=== PATIENT | female | born 1950 | race Caucasian/White ===

== ENCOUNTER 2024-12-29 23:31 | Emergency (ER) | payer OTHER, SELFPAY ==
[2024-12-29 23:33] VITALS: BMI 31.1
--- NOTE | 2024-12-29 23:50 | ED.GENMED ---
History of Present Illness
General
Chief Complaint: Fall
Source: patient and ambulance crew
Exam Limitations: none
Time Seen by Provider: 12/29/24 23:37
Nursing documentation reviewed up to this point in time: agreed with
History of Present Illness
History of Present Illness:
This is a 74-year-old woman history of hypothyroidism, pwu-neyxrqe-awklvgrli diabetes, hyperlipidemia, depression, mild cognitive impairment, insomnia, remote history of renal cell carcinoma status post nephrectomy and history of ambulatory
dysfunction uses a walker to ambulate. She resides in an assisted living apartment, recently relocating from an assisted living facility in [place] to assisted living facility locally 2 weeks ago.
This evening while ambulating with her walker she lost her balance and fell onto her back. She denies head injury, denies loss of consciousness, pressed her medical alert immediately. Staff summoned 911.
When asked if she had difficulty getting up patient states 'they would not let me get up'
She has full recollection of events, denies striking her head, denies head injury, denies neck pain but she does note some back pain, left knee pain and tingling of her left foot. She takes no anticoagulants other than low-dose aspirin.
Past History
Past History
ED Past Medical History: Cancer (Renal cell carcinoma status post nephrectomy), GERD, HTN, NIDDM, Hypothyroidism, Psychiatric (Anxiety/depression/mild cognitive impairment/insomnia) and Other (Overactive bladder, irritable bowel syndrome)
ED Past Surgical History: Urological (Nephrectomy for renal cell carcinoma)
Social History
Tobacco: Non-smoker
Alcohol: None
Living: assisted living
Employment: Retired
Family History
Family History: Other (Noncontributory)
Phy Exam
Physical Exam
Physical Exam:
TRAUMA EXAM:
VITAL SIGNS: Vital signs reviewed, cooperative
DISTRESS: No active disease
EYES: Pupils reactive, no orbital trauma
NOSE: No deformity or epistaxis
FACE AND SCALP: No scalp or facial trauma, external canals no blood
NECK: Cervical collar removed by myself. There is no midline bony tenderness, neck is supple. Full cervical range of motion without difficulty nor pain.
BACK: Mild midline tenderness at mid to lower thoracic spine, no contusions nor abrasions, no palpable step-off deformity. Pelvis stable to compression but mild bilateral pelvic pain with pelvic rock.
RESPIRATORY: No distress, breath sounds normal, no tender chest wall
CARDIAC: No murmur, pulses equal and strong
ABDOMEN: Soft nontender bowel sounds normal
SKIN: Skin intact no bleeding, color normal
EXTREMITIES: Mild to moderate tenderness left anteromedial distal knee with very minimal local soft tissue swelling and perhaps a hint of early ecchymosis. There is mild to moderate left knee pain with flexion/extension without crepitus, negative
drawer. There is no tenderness about the hips and full bilateral hip range of motion without difficulty nor pain. No tenderness to the ankles nor feet. No tenderness to the upper extremities. Peripheral pulses are full and equal. There is no
clubbing or cyanosis nor edema.
NEUROLOGICAL: Alert, oriented, no motor deficits. Motor strength is 5/5 bilaterally. Gross sensation is intact bilaterally.
PSYCH: Mood affect normal
Course
Orders/Labs/Results
Orders:
Orders
12/30/24 00:00
Knee, Left 4 or More Views [CR Knee - Left 4 Or More View*] Urgent
Comment:
Reason For Exam: fall, L anterior/distal knee pain
Lumbar Spine Complete, 4 View [CR Lumbar Spine Comp Min 4 Vw*] Urgent
Comment:
Reason For Exam: mechanical fall, mid back pain
Pelvis, Complete 3 Views CR [CR Pelvis Comp Min 3 Views] Urgent
Comment:
Reason For Exam: mechanical fall, b/l bony pelvic pain
Thoracic Spine 3 Views CR [CR Thoracic Spine 3 Views] Urgent
Comment:
Reason For Exam: mechanical fall, mid back pain
12/30/24 01:38
Acetaminophen [Tylenol] 1,000 mg PO NOW STA
12/30/24 02:13
Ambulate Patient-Treatment ONCE
12/30/24 02:36
Acetaminophen [Tylenol] 500 mg .ROUTE .STK-MED ONE
Vital Signs
Initial and Last Documented VS:
Initial Vital Signs
Pulse Ox
98
12/29/24 23:35
Last Documented Vital Signs
Temp Pulse Resp BP Pulse Ox
97.5 F 82 18 139/71 93
12/30/24 00:00 12/30/24 03:54 12/30/24 03:54 12/30/24 02:00 12/30/24 02:15
MDM/Problems Addressed
Differential Diagnosis Includes:
Patient suffered mechanical fall at assisted living facility. Has full recollection of events. She remains awake and alert, oriented x 3, consistent with retelling/recall of recent events.
Denies head injury, takes no anticoagulants save for low-dose aspirin. At this point no indication for CT of the head.
She is noted to be tender mid to lower thoracic spine, concern for potential compression fracture thus will check x-ray thoracic as well as lumbar spine.
Exam is also notable for moderate left knee pain and subjective paresthesia of left foot however no focal neuro deficits. Concern for left tibial plateau fracture/knee contusion.
Complains of paresthesia of left foot however no appreciable sensory deficit nor weakness on exam. Concern for peripheral neuropathy versus more central/cord/nerve root compression.
Chronic conditions affecting care: DM, Psychiatric illness, Kidney disease (Renal cell carcinoma status post nephrectomy) and Other (Ambulatory dysfunction requiring walker)
*Radiology
Radiology exam reviewed: all reviewed NAD by ED Provider (X-ray showed moderate DJD of thoracic and lumbar spine but no evidence of fracture. Pelvis x-ray is unremarkable as is left knee.)
*Pulse Oximetry
Patient hypoxic: no
*Critical Care Note
Total Time (30-74mins, 75-104mins- exclusive of procedures): Not Applicable
Update Note
Update Note:
03:30
X-rays are unremarkable. No evidence of fracture.
Patient has been medicated for pain with Tylenol and has successfully ambulated with walker. Steady gait.
Denies pain.
Will discharge back to assisted living facility.
ED Attending Note
-
Portions of this chart may have been created with voice recognition software.� Occasional wrong word or��sound alike� substitutions may have occurred due to the inherent limitations of voice recognition software.
Discharge Plan
Departure
Patient Disposition: Assisted Living
Date of Disposition: 12/30/24
Time of Disposition: 03:30
Discharge Problem:
fall at assisted living facility, Contusion of knee, left, Low back pain
Instructions: Contusion (DC), Preventing falls in adults
Interventions
Interventions:
*Risk Screen - Suicide Last Done: 12/29/24 23:53
*General Assessment Last Done: 12/29/24 23:53
*Neglect/Abuse Screening Last Done: 12/29/24 23:53
*ED- Fall Risk Assessment Last Done: 12/29/24 23:53
*ED COVID-19 Vaccine History Last Done: 12/29/24 23:53
*Nursing Disposition Last Done: 12/30/24 03:54
ED-Musculoskeletal Assessment Last Done: 12/30/24 00:08
ED- Neurological Assessment Last Done: 12/30/24 00:08
ED-Skin Assessment Last Done: 12/30/24 00:08
Discharge Date and Time
Discharge Date/Time: 12/30/24 03:55
Print Language: LATVIAN
[2024-12-30] VITALS: BP 145/69
[2024-12-30 01:11] VITALS: BP 144/73
[2024-12-30 02:00] VITALS: BP 139/71
[2024-12-30] MEDS: TYLENOL 1000 MG PO (02:36)
== END 2024-12-30 03:55 ==
LOC: EMR 23:31
PROVIDERS: EMERGENCY PHYSICIAN Emergency Medicine; FAMILY PHYSICIAN Nurse Practitioner Family
DX: S80.02XA Contusion of left knee, initial encounter (principal); M54.50 Low back pain, unspecified; R20.2 Paresthesia of skin; W19.XXXA Unspecified fall, initial encounter; Y92.099 Unspecified place in other non-institutional residence as the place of occurrence of the external cause; E03.9 Hypothyroidism, unspecified; G30.9 Alzheimer's disease, unspecified; F02.80 Dementia in other diseases classified elsewhere, unspecified severity, without behavioral disturbance, psychotic disturbance, mood disturbance, and anxiety; E11.9 Type 2 diabetes mellitus without complications; E78.5 Hyperlipidemia, unspecified; F32.A Depression, unspecified; R26.89 Other abnormalities of gait and mobility; F41.9 Anxiety disorder, unspecified; N32.81 Overactive bladder; I10 Essential (primary) hypertension; K21.9 Gastro-esophageal reflux disease without esophagitis; K58.9 Irritable bowel syndrome, unspecified; Z90.5 Acquired absence of kidney; Z85.528 Personal history of other malignant neoplasm of kidney
CPT/HCPCS: 99284; 72072; 72110; 72190; 73564

== ENCOUNTER → 2025-08-27 14:19 | Outpatient (REF) | payer OTHER, SELFPAY | LOC: HWWDC 14:19 | PROVIDERS: ATTENDING PHYSICIAN Family Medicine | DX: Z12.31 Encounter for screening mammogram for malignant neoplasm of breast (principal) | CPT/HCPCS: 77063; 77067 ==

== ENCOUNTER 2025-09-25 18:49 | Inpatient (IN) | payer OTHER, SELFPAY ==
[2025-09-25 14:54] VITALS: BP 152/83
[2025-09-25 15:11] LABS: Hematocrit 36.3 % (37.0-47.0); Hemoglobin 11.9 g/dL (12.0-16.0); Mean Corp Hgb Conc. 32.8 g/dL (33.0-37.0); Mean Corpuscular Volume 89.9 fL (81.0-99.0); Nucleated Red Blood Cells % 0 %; Platelet Count 319 10^3/uL (130-400); Red Cell Dist. Width 13.6 % (11.5-14.5)
[2025-09-25 15:29] LABS: ALT (SGPT) 34 U/L (0-35); AST (SGOT) 40 U/L (14-36); Albumin 5.1 g/dl (3.5-5.0); Alkaline Phosphatase 72 U/L (38-126); Blood Urea Nitrogen 79 mg/dl (7-17); Calcium 9.8 mg/dl (8.4-10.2); Carbon Dioxide 16 mmol/L (22-30); Chloride 109 mmol/L (98-107); Glucose 155 mg/dl (70-99); Lipase 169 U/L (23-300); Potassium 4.6 mmol/L (3.5-5.1); Sodium 140 mmol/L (135-145); Total Protein 9.0 g/dl (6.3-8.2); eGFR 19.69
[2025-09-25 17:56] VITALS: BP 121/78
[2025-09-25] MEDS: LR 1000 IV (17:59)
[2025-09-25 18:00] VITALS: BP 125/69
--- NOTE | 2025-09-25 18:07 | ED.GENMED ---
History of Present Illness
<Jenaro Lawson PA-C - Last Filed: 09/25/25 18:50>
General
Chief Complaint: Fall
Time Seen by Provider: 09/25/25 16:17
History of Present Illness
History of Present Illness:
75-year-old female with history of dementia and hypertension presents to the Emergency Department from [facility] after mechanical fall. She states she felt weak and tried to get out of bed and slipped out of bed striking her
head against the frame. No reported LOC. Denies any neck or low back pain. Denies any hip or pelvic pain. Apparently earlier this week she 'had the flu' and had diarrhea for several days. Daughter states that her functional status has been
gradually declining.
Past History
<Jenaro Lawson PA-C - Last Filed: 09/25/25 18:50>
Past History
ED Past Medical History: Cancer (Renal cell carcinoma status post nephrectomy), GERD, HTN, NIDDM, Hypothyroidism, Psychiatric (Anxiety/depression/mild cognitive impairment/insomnia) and Other (Overactive bladder, irritable bowel syndrome)
ED Past Surgical History: Urological (Nephrectomy for renal cell carcinoma)
Social History
Tobacco: Non-smoker
Alcohol: None
Living: assisted living
Employment: Retired
Family History
Family History: Other (Noncontributory)
Review of Systems
<Jenaro Lawson PA-C - Last Filed: 09/25/25 18:50>
Review of Systems
Allergies reviewed?: Yes
All Other Systems: ROS reviewed and negative except as documented in HPI and ROS
Phy Exam
<Jenaro Lawson PA-C - Last Filed: 09/25/25 18:50>
Physical Exam
Physical Exam:
GEN: Well appearing, NAD, WDWN
HEENT: Normocephalic and atraumatic, oral mucosa moist, no scleral icterus
Cardiac: Regular rate and rhythm, no murmur
Lung: No respiratory distress, no tachypnea
MSK: No gross deformity or injuries
Skin: Good color, no pallor or jaundice, no rashes
Neuro: AO x3, cranial nerves II through XII grossly intact, moves all extremities freely
Psych: Calm, cooperative
Course
<Jenaro Lawson PA-C - Last Filed: 09/25/25 18:50>
Orders/Labs/Results
Orders:
Orders
09/25/25 Breakfast
Cholesterol Lowering
At Your Request: Limited Participation
Cholesterol Lowering: Sodium, 2 Gram
09/25/25 15:01
Complete Blood Count/With Diff Urgent
Comprehensive Metabolic Panel Urgent
Lipase Urgent
09/25/25 16:29
CT Head W/o Iv Contrast Urgent
Comment:
Reason For Exam: fall head strike
09/25/25 17:15
Bladder Scan- Treatment ONCE
Lactated Ringers [Lr] 1,000 ml IV 250 mls/hr
09/25/25 18:00
Urinalysis Reflex To Culture Urgent
Date Specimen was Collected: 09/25/25
Time Specimen was Collected: 17:42
Urine Microscopic Reflex Cult Urgent
Urine Culture Urgent
BIBIANA Source: U
Specimen Description:
Date Specimen was Collected: 09/25/25
Time Specimen was Collected: 17:42
09/25/25 18:25
CR Chest - 2 Views Stat
Comment:
Reason For Exam: cough
09/25/25 18:35
Admit/Transfer Patient As Directed
Co-Sign Provider:
Level of Care: Inpatient admission
Assign to:: Medical/Surgical
Physician / Group: marcie
Diagnosis: SOLO
Reason for Hospitalization: SOLO
Expected length of stay greater than two midnights?: Yes
ELOS- Estimated Length of Stay in days: 3
I certify the patient meets the requirements for IP care: Yes
COVID-19 Antigen Stat
Source: Nasal Swab
Influenza A+B Rapid Molecular Stat
BIBIANA Source: Nasal Swab
Specimen Description:
PRN Pain Medication Management As Directed
May give lesser potent ordered pain med per pt: Yes
preference::
Protocol:: Medication orders for pain may be administered in a
manner that supports deferring to patient preference
when the pt is:
- Requesting an ordered lesser potent pain medication.
Least to most potent pain medications are defined
as: acetaminophen < NSAID < tramadol < opioids
(morphine, oxycodone, hydromorphone).
- Requesting a lesser dose of the same medication IF
ORDERED.
- Requesting a less intrusive route of administration
if both routes are prescribed by the provider (PO <
IV).
09/25/25 18:36
Code Status As Directed
Resuscitation Status: Full Code
09/25/25 20:31
0.9% Sodium Chloride 1000 ml [Nss] 1,000 ml IV 100 mls/hr
Acetaminophen [Tylenol] 650 mg PO Q4HPRN PRN
Bisacodyl [Dulcolax] 10 mg RECTAL [id number] PRN
Dextrose 50%-Water [Dextrose 50% Syringe] 12.5 grams IV [id number] PRN
Docusate W/Senna [Senokot-S] 1 tablet PO BIDPRN PRN
Glucagon [GlucaGen] 1 mg IM PRN PRN
Guaifenesin [Mucinex] 600 mg PO Q12 PRN
Heparin 5,000 units SC Q12
Polyethylene Glycol Powder [Miralax] 17 grams PO DAILYPRN PRN
09/25/25 20:31
Activity As Directed
Activity Level: As Tolerated
Bedside Glucose Monitoring As Directed
Frequency: AC&HS
Additional Instructions:: Change to q6h if pt on TPN, tube feeding or not eating
Vital Signs As Directed
Frequency: Per unit guidelines
Ot Eval And Treat Routine
Pt Eval And Treat Routine
Activity Level: As Tolerated
DX Deep Vein Thrombosis Video Routine
09/26/25 06:00
Basic Metabolic Panel IN AM
Complete Blood Count/No Diff IN AM
Glycohemoglobin (HgbA1c) IN AM
09/26/25 07:30
Insulin Aspart Corrective Low [Novolog Flexpen-Low Resistance] See Protocol SC AC
09/27/25 06:00
Basic Metabolic Panel IN AM
Complete Blood Count/No Diff IN AM
09/28/25 06:00
Basic Metabolic Panel IN AM
Complete Blood Count/No Diff IN AM
09/29/25 06:00
Basic Metabolic Panel IN AM
Abnormal Lab Results
09/25/25 09/25/25
15:01 18:00
RBC 4.04 L 10^6/uL
(4.20-5.40)
Hgb 11.9 L g/dL
(12.0-16.0)
Hct 36.3 L %
(37.0-47.0)
MCHC 32.8 L g/dL
(33.0-37.0)
Absolute Neuts (auto) 7.1 H 10^3/uL
(1.4-6.5)
Absolute Lymphs (auto) 1.1 L 10^3/uL
(1.2-3.4)
Absolute Monos (auto) 1.2 H 10^3/uL
(0.1-0.6)
Lymphocytes % 11.7 L %
(20.5-51.1)
Monocytes % 12.9 H %
(1.7-9.3)
Chloride 109 H mmol/L
(98-107)
Carbon Dioxide 16 L mmol/L
(22-30)
BUN 79 H mg/dl
(7-17)
Creatinine 2.5 H mg/dL
(0.6-1.0)
Glucose 155 H mg/dl
(70-99)
AST 40 H U/L
(14-36)
Total Protein 9.0 H g/dl
(6.3-8.2)
Albumin 5.1 H g/dl
(3.5-5.0)
Leukocyte Esterase Rfl 3+ A
(Negative)
Urine WBC (Reflex) 50-60 A /HPF
(0-5)
Urine Bacteria (Reflex) Many A
(Negative)
Urine Albumin (Reflex) 2+ A
(Neg - Trace)
09/25/25 15:01
09/25/25 15:01
Vital Signs
Initial and Last Documented VS:
Initial Vital Signs
Temp Pulse Resp BP Pulse Ox
97.8 F 91 16 152/83 96
09/25/25 14:54 09/25/25 14:54 09/25/25 14:54 09/25/25 14:54 09/25/25 14:54
Last Documented Vital Signs
Temp Pulse Resp BP Pulse Ox
97.8 F 91 18 125/69 98
09/25/25 14:54 09/25/25 14:54 09/25/25 18:17 09/25/25 18:00 09/25/25 18:30
<Ernst HJyoti Calvillo, DO - Last Filed: 09/25/25 20:41>
Orders/Labs/Results
Orders:
Orders
09/25/25 Breakfast
Cholesterol Lowering
At Your Request: Limited Participation
Cholesterol Lowering: Sodium, 2 Gram
09/25/25 15:01
Complete Blood Count/With Diff Urgent
Comprehensive Metabolic Panel Urgent
Lipase Urgent
09/25/25 16:29
CT Head W/o Iv Contrast Urgent
Comment:
Reason For Exam: fall head strike
09/25/25 17:15
Bladder Scan- Treatment ONCE
Lactated Ringers [Lr] 1,000 ml IV 250 mls/hr
09/25/25 18:00
Urinalysis Reflex To Culture Urgent
Date Specimen was Collected: 09/25/25
Time Specimen was Collected: 17:42
Urine Microscopic Reflex Cult Urgent
Urine Culture Urgent
BIBIANA Source: U
Specimen Description:
Date Specimen was Collected: 09/25/25
Time Specimen was Collected: 17:42
09/25/25 18:25
CR Chest - 2 Views Stat
Comment:
Reason For Exam: cough
09/25/25 18:35
Admit/Transfer Patient As Directed
Co-Sign Provider:
Level of Care: Inpatient admission
Assign to:: Medical/Surgical
Physician / Group: marcie
Diagnosis: SOLO
Reason for Hospitalization: SOLO
Expected length of stay greater than two midnights?: Yes
ELOS- Estimated Length of Stay in days: 3
I certify the patient meets the requirements for IP care: Yes
COVID-19 Antigen Stat
Source: Nasal Swab
Influenza A+B Rapid Molecular Stat
BIBIANA Source: Nasal Swab
Specimen Description:
PRN Pain Medication Management As Directed
May give lesser potent ordered pain med per pt: Yes
preference::
Protocol:: Medication orders for pain may be administered in a
manner that supports deferring to patient preference
when the pt is:
- Requesting an ordered lesser potent pain medication.
Least to most potent pain medications are defined
as: acetaminophen < NSAID < tramadol < opioids
(morphine, oxycodone, hydromorphone).
- Requesting a lesser dose of the same medication IF
ORDERED.
- Requesting a less intrusive route of administration
if both routes are prescribed by the provider (PO <
IV).
09/25/25 18:36
Code Status As Directed
Resuscitation Status: Full Code
09/25/25 20:31
0.9% Sodium Chloride 1000 ml [Nss] 1,000 ml IV 100 mls/hr
Acetaminophen [Tylenol] 650 mg PO Q4HPRN PRN
Bisacodyl [Dulcolax] 10 mg RECTAL [id number] PRN
Dextrose 50%-Water [Dextrose 50% Syringe] 12.5 grams IV [id number] PRN
Docusate W/Senna [Senokot-S] 1 tablet PO BIDPRN PRN
Glucagon [GlucaGen] 1 mg IM PRN PRN
Guaifenesin [Mucinex] 600 mg PO Q12 PRN
Heparin 5,000 units SC Q12
Polyethylene Glycol Powder [Miralax] 17 grams PO DAILYPRN PRN
09/25/25 20:31
Activity As Directed
Activity Level: As Tolerated
Bedside Glucose Monitoring As Directed
Frequency: AC&HS
Additional Instructions:: Change to q6h if pt on TPN, tube feeding or not eating
Vital Signs As Directed
Frequency: Per unit guidelines
Ot Eval And Treat Routine
Pt Eval And Treat Routine
Activity Level: As Tolerated
DX Deep Vein Thrombosis Video Routine
09/26/25 06:00
Basic Metabolic Panel IN AM
Complete Blood Count/No Diff IN AM
Glycohemoglobin (HgbA1c) IN AM
09/26/25 07:30
Insulin Aspart Corrective Low [Novolog Flexpen-Low Resistance] See Protocol SC AC
09/27/25 06:00
Basic Metabolic Panel IN AM
Complete Blood Count/No Diff IN AM
09/28/25 06:00
Basic Metabolic Panel IN AM
Complete Blood Count/No Diff IN AM
09/29/25 06:00
Basic Metabolic Panel IN AM
Abnormal Lab Results
09/25/25 09/25/25
15:01 18:00
RBC 4.04 L 10^6/uL
(4.20-5.40)
Hgb 11.9 L g/dL
(12.0-16.0)
Hct 36.3 L %
(37.0-47.0)
MCHC 32.8 L g/dL
(33.0-37.0)
Absolute Neuts (auto) 7.1 H 10^3/uL
(1.4-6.5)
Absolute Lymphs (auto) 1.1 L 10^3/uL
(1.2-3.4)
Absolute Monos (auto) 1.2 H 10^3/uL
(0.1-0.6)
Lymphocytes % 11.7 L %
(20.5-51.1)
Monocytes % 12.9 H %
(1.7-9.3)
Chloride 109 H mmol/L
(98-107)
Carbon Dioxide 16 L mmol/L
(22-30)
BUN 79 H mg/dl
(7-17)
Creatinine 2.5 H mg/dL
(0.6-1.0)
Glucose 155 H mg/dl
(70-99)
AST 40 H U/L
(14-36)
Total Protein 9.0 H g/dl
(6.3-8.2)
Albumin 5.1 H g/dl
(3.5-5.0)
Leukocyte Esterase Rfl 3+ A
(Negative)
Urine WBC (Reflex) 50-60 A /HPF
(0-5)
Urine Bacteria (Reflex) Many A
(Negative)
Urine Albumin (Reflex) 2+ A
(Neg - Trace)
09/25/25 15:01
09/25/25 15:01
Vital Signs
Initial and Last Documented VS:
Initial Vital Signs
Temp Pulse Resp BP Pulse Ox
97.8 F 91 16 152/83 96
09/25/25 14:54 09/25/25 14:54 09/25/25 14:54 09/25/25 14:54 09/25/25 14:54
Last Documented Vital Signs
Temp Pulse Resp BP Pulse Ox
97.8 F 91 18 125/69 98
09/25/25 14:54 09/25/25 14:54 09/25/25 18:17 09/25/25 18:00 09/25/25 18:30
<Jenaro Lawson PA-C - Last Filed: 09/25/25 18:50>
MDM/Problems Addressed
MDM/Problems Addressed:
Patient's creatinine is acutely elevated from baseline which is normally 1.3 per labs from her facility. This is likely hypovolemic in the setting of recent diarrheal illness coupled with poor p.o. intake. Will admit for further management
<Jenaro Lawson PA-C - Last Filed: 09/25/25 18:50>
*Pulse Oximetry
SaO2: 95
Oxygen Mode of Delivery: Room air
Patient hypoxic: no
*Critical Care Note
Total Time (30-74mins, 75-104mins- exclusive of procedures): Not Applicable
<Jenaro Lawson PA-C - Last Filed: 09/25/25 18:50>
Update Note
Update Note:
Labs faxed from [facility], most recently patient had a serum creatinine of 1.3 in March 2025
ED Attending Note
<Jenaro Lawson PA-C - Last Filed: 09/25/25 18:50>
-
Portions of this chart may have been created with voice recognition software.� Occasional wrong word or��sound alike� substitutions may have occurred due to the inherent limitations of voice recognition software.
<Ernst Calvillo DO - Last Filed: 09/25/25 20:41>
ED Attending Note
Patient seen and examined by attending physician: Yes
I performed the substantive portion of visit, reviewed & personally made and approve the management plan that is documented in note by myself or NATALIO.: Yes
ED Attending Note:
I agree with Orion's note.
Patient sent to the emergency room for evaluation after slipping out of bed. Evidently has had a decline in functional status over time but more acutely recently. She recently had a diarrheal illness.
General: Awake, confused, appears stated age and chronically ill
Vitals: Afebrile
Head: Atraumatic
Eyes: Pupils equal, EOMI
Throat: Airway intact, no exudates, dry mucosa
Neck: Trachea midline
Lungs: Clear and equal b/l
Heart: Regular rate, no murmurs
Abd: Soft, Nontender, No pulsatile mass
Neuro: Grossly nonfocal
Pertinent abnormal labs are elevated BUN at 79 and creatinine 2.5. Evidently this is much higher than her baseline of 1.3 creatinine. She does have a bit of a metabolic acidosis with a bicarb of 16. Patient clinically looks dry. She is afebrile.
She does have a significant number of WBCs per high-power field. Patient will require hospitalization for IV fluids. Antibiotics.
Discharge Plan
Departure
Patient Disposition: Admit
Date of Disposition: 09/25/25
Time of Disposition: 18:08
Admit to: Med/Surg
Presentation/result/management discussed w/ accepting MD/DO: Hospitalist
Discharge Problem:
SOLO (acute kidney injury)
Interventions
Interventions:
*Risk Screen - Suicide Last Done: 09/25/25 14:54
*General Assessment Last Done: 09/25/25 17:04
*Neglect/Abuse Screening Last Done: 09/25/25 14:54
*ED COVID-19 Vaccine History Last Done: 09/25/25 16:18
*ED Influenza Vaccine History Last Done: 09/25/25 16:18
[facility] Fall Risk Assessment Tool Last Done: 09/25/25 17:04
*Nursing Disposition Last Done: 09/25/25 20:08
ED-Musculoskeletal Assessment Last Done: 09/25/25 17:04
ED- Neurological Assessment Last Done: 09/25/25 17:04
ED-Skin Assessment Last Done: 09/25/25 17:04
Discharge Date and Time
Discharge Date/Time: 09/25/25 20:13
--- NOTE | 2025-09-25 18:10 | HPS.HSE ---
Addendum entered and electronically signed by Kristyn Hughes MD 09/25/25 20:04:
This is an addendum to the H&P written by Madeline Dhaliwal on 09/25/2025. �Patient seen and examined independently with [employer].
75-year-old female past medical history of renal cell carcinoma status post left nephrectomy, hypertension, GERD, type I diabetes, hypothyroidism, anxiety/depression, mild cognitive impairment, insomnia, overactive bladder, IBS presenting after
mechanical fall. �She felt weak and slipped out of bed striking her head against the bed frame.
Earlier this week she had flulike symptoms including cough and congestion and burning with urination. �She denies diarrhea although ER note indicates that she had diarrhea earlier this week. States no BM in 2-3 days which is normal for her.�
Vital signs unremarkable.
Labs show bicarb of 16. �Creatinine of 2.5. �Hemoglobin 11.9. �CT head shows no evidence of acute intracranial abnormality.
Patient with possible URI versus pneumonia versus UTI. �Patient with SOLO and metabolic acidosis likely prerenal. �Check COVID and influenza, chest x-ray, urinalysis. �IV fluids.
Original Note:
Family Physician
-
Family Physician: Kenton Uribe
Chief Complaint
-
fall
History of Present Illness
75-year-old female with history of dementia and hypertension, bladder cancer, hypothyroidism, type 1 DM, alzhmiers, insomnia, GRD, IBS, UTI presents to the Emergency Department from [facility] after mechanical fall. she was
getting out of bed, her legs got caught and she fell. she did hit back of her head on the floor. denied MEJIA, dizzy or syncope. she had burning with urination earlier this week. she complained of congestion and dry cough. she thinks, she might had
flu. denied fever, chills, abdominal pain,n,v,d.
she was noted to have SOLO, LR ordered in ER. admitting for further management.
Medical History
Past Medical History
Past Medical History: Reports Other
Additional Past Medical History:
Dementia and hypertension, bladder cancer, hypothyroidism, type 1 DM, alzhmiers, insomnia, GRD, IBS, UTI
Past Surgical History: Reports Other
Additional Past Surgical History:
left nephrectomy
partial thyroidectomy
dental surgeries
Social History
Tobacco: Non-smoker
Alcohol: None
Drug: None
Living: Custodial
Family History
Family History: Not pertinent
Allergies / Home Medications
Allergies reflects when Allergies were last updated in [employer].
Home Medications with original date entered in [employer]
Allergy/Medication List:
Allergies
Allergy/AdvReac Type Severity Reaction Status Date / Time
No Known Allergies Allergy Verified 09/25/25 14:57
Review of Systems
-
Constitutional: Reports No Symptoms
EENT: Reports No Symptoms
Respiratory: Reports Cough
Cardiac: Reports No Symptoms
Abdomen/GI: Reports No Symptoms
: Reports No Symptoms and Difficulty Voiding
Musculoskeletal: Reports No Symptoms
Skin: Reports No Symptoms
Neurological: Reports No Symptoms
Endocrine: Reports No Symptoms
Hematologic/Lymphatic: Reports No Symptoms
Psych: Reports No Symptoms
Physical Exam
Vital Signs
Vital Signs
Temp Pulse Resp BP Pulse Ox
97.8 F 91 20 152/83 95
09/25/25 14:54 09/25/25 14:54 09/25/25 17:04 09/25/25 14:54 09/25/25 18:08
Physical Exam
General: Well Developed, Well Nourished and No Apparent Distress
HEENT: NormoCephalic, Moist mucous membranes and Atraumatic
Respiratory: Clear
Cardiac: S1/S2 and Regular Rhythm; No Murmur or Rub
GI: Soft, Non Tender, Non Distended and Normal Bowel Sounds; No Organomegaly
Rectal: Deferred by Provider
Musculoskeletal: No Clubbing, No Cyanosis and No Edema
Skin: No Rash
Neuro: AO x 3 and Nonfocal/grossly intact
Psych: Calm
Laboratory Results
-
09/25/25 15:01
09/25/25 15:01
Laboratory Results
Total Bilirubin 0.3 mg/dl (0.2-1.3) 09/25/25 15:
AST 40 U/L (14-36) H 09/25/25 15:01
ALT 34 U/L (0-35) 09/25/25 15:01
Alkaline Phosphatase 72 U/L (38-126) 09/25/25 15:
Lipase 169 U/L (23-300) 09/25/25 15:01
Data Reviewed
-
Lab Data: Labs Reviewed by me
Impression/Plan
-
#Generalized weakness/mechanical fall
- PT OT
-Head CT negative
#Acute kidney injury on CKD stage IIIb concern for dehydration
- Creatinine 2.5
-fluids continued
-BMP in am
#congestion/cough likely viral
-obtain flu, covid
-obtain chest x ray
-Mucinex prn for cough
#urinary burning
-UA pending
#diabetes
-sliding scale
-cho diet
-hold metformin
#essential HTN
-Norvasc continued with hold parameter
-lisinopril held due to SOLO
#demential/alzhmiers
-aricept continued
#GERD
-PPI continued
#LE edema
-hold Lasix due to SOLO
#overactive bladder
-bladder scan
-mirabegron continued
#restless syndrome
-Requip continued
#HLD
-statin continued
#anxiety
-sertraline
#hypothyroidism
-Synthroid continued
insomnia
-melatonin, temazepam
#DVT prophylaxis
-heparin sq
#CODE status
-full code
[2025-09-25 18:17] LABS: Urine Character Clear (Clear)
[2025-09-25 18:35] LABS: Urine Red Blood Cell 0-2 /HPF (0-2); Urine White Cell 50-60 /HPF (0-5)
[2025-09-25 19:07] LABS: COVID-19 Antigen Negative (Negative)
[2025-09-25 22:16] LABS: Glucose - Point of Care 141 mg/dl (70-99)
[2025-09-25] MEDS: MELATONIN 5 MG PO (22:25)
[2025-09-25] MEDS: RESTORIL 7.5 MG PO (22:25)
[2025-09-25] MEDS: ZOLOFT 100 MG PO (22:25)
[2025-09-25] MEDS: HEPARIN 5000 UNITS SC (22:26)
[2025-09-25] MEDS: DESENEX/MITRAZOL/ZEASORB 1 APPLIC TOPICAL (22:47)
[2025-09-25] MEDS: NSS 1000 IV (23:19)
[2025-09-26 00:39] VITALS: BP 142/77
[2025-09-26 00:41] VITALS: BMI 29.9
--- NOTE | 2025-09-26 01:49 | PTCARENOTE ---
Pt admitted from ED via stretcher. Pt AAOx3. Denied pain. Pt with hx of dementia and admitted for fall at home. Bed alarm in place. Pt afebrile. VSS. Right AC IV C/D/I, infusing without issues. Call lan within reach and bed in lowest
position.
[2025-09-26] MEDS: SYNTHROID 112 MCG PO (06:03)
[2025-09-26 06:53] LABS: Hematocrit 34.9 % (37.0-47.0); Hemoglobin 11.7 g/dL (12.0-16.0); Mean Corp Hgb Conc. 33.5 g/dL (33.0-37.0); Mean Corpuscular Volume 90.9 fL (81.0-99.0); Platelet Count 281 10^3/uL (130-400); Red Cell Dist. Width 13.7 % (11.5-14.5)
[2025-09-26 07:17] LABS: Glucose - Point of Care 126 mg/dl (70-99)
[2025-09-26 07:27] LABS: Blood Urea Nitrogen 60 mg/dl (7-17); Calcium 9.8 mg/dl (8.4-10.2); Carbon Dioxide 17 mmol/L (22-30); Chloride 111 mmol/L (98-107); Estimated Creatinine Clearance 28 ml/min; Glucose 128 mg/dl (70-99); Potassium 4.1 mmol/L (3.5-5.1); Sodium 140 mmol/L (135-145); eGFR 29.20
[2025-09-26 07:48] VITALS: BP 150/82
[2025-09-26] MEDS: NOVOLOG FLEXPEN-LOW RESISTANCE SC ×3 (08:08→16:41)
[2025-09-26] MEDS: NSS 1000 IV ×2 (08:33→10:29)
[2025-09-26] MEDS: HEPARIN 5000 UNITS SC ×2 (08:34→16:02)
[2025-09-26] MEDS: REQUIP 0.5 MG PO (08:34)
[2025-09-26] MEDS: NORVASC 5 MG PO (08:34)
[2025-09-26] MEDS: ASPIR LOW (ENTERIC COATED) 81 MG PO (08:34)
[2025-09-26] MEDS: PROTONIX 40 MG PO (08:34)
[2025-09-26] MEDS: MIRALAX 17 GRAMS PO (08:35)
[2025-09-26] MEDS: STERILE WATER FOR INJECTION 10 ML IV (08:35)
[2025-09-26] MEDS: CLARITIN 10 MG PO (08:38)
[2025-09-26] MEDS: LIDOCAINE 4% PATCH 1 PATCH TOPICAL ×2 (08:38)
[2025-09-26] MEDS: CRESTOR 10 MG PO (08:38)
[2025-09-26] MEDS: OSCAL 500 + D 500 MG PO (08:38)
[2025-09-26] MEDS: ARICEPT 10 MG PO (08:38)
[2025-09-26] MEDS: DESENEX/MITRAZOL/ZEASORB 1 APPLIC TOPICAL ×2 (08:39→20:35)
[2025-09-26] MEDS: ROCEPHIN 1000 MG IV (08:39)
--- NOTE | 2025-09-26 09:44 | W.PN.HOSP.TC ---
Addendum entered and electronically signed by Nicholas Figueroa MD 09/26/25 11:24:
#Diarrhea
most liekly iatrogenic
stop laxatives
probiotics
Original Note:
Today's Communication/Plan
-
see PN
Assessment / Plan
Assessment / Plan
75yo F with PMHX of RCC s/p L nephrectomy, DM, HTN, GERD, hypothyroidism, anxiety/depression, cognitive impairment, Hx of overactive bladder, IBS came after fall w/o LOC since she hit her head, also found SOLO with UTI. HAd recent diarrhea and some
respiratory symptoms that currently resolved.
A/P:
#SOLO on CKD unknown stage
#Hx of RCC s/p L nephrectomy
as per daughter Cr in March 2025 1.3
most likely 2/2 dehydration with recent ilness
US renal
Hydrate and follow bmp
Roentgenology Teacher: Manny Bautista
#UTI
Ceftriaxone pending Ucx
#DM type 2 not on insulin
Accuchecks, insulin SS, DM diet
#Essential HTN
#Overactive bladder
#GERD
#Hypothyroidism
#IBS
#HLD
cont home meds
DVT ppx hep
Full code
I have spent at least 59min reviewing hcart, test results, communication with consultants, daughter over the phone and providing direct patient care
Anticipated Discharge: 24 - 48 hours
Subjective/Interval History
-
Date of Service: September 26, 2025
Objective Data
-
Labs:
Laboratory Results
09/26/25
06:25
WBC 8.8
Hgb 11.7 L
Hct 34.9 L
Plt Count 281
Sodium 140
Potassium 4.1
Chloride 111 H
Carbon Dioxide 17 L
BUN 60 H
Creatinine 1.8 H
Glucose 128 H
Calcium 9.8
Vital Signs:
Vital Signs
Temp Pulse Resp BP Pulse Ox
98.3 F 94 16 150/82 96
09/26/25 07:48 09/26/25 07:48 09/26/25 07:48 09/26/25 07:48 09/26/25 07:48
Review of Systems
-
History Source: Patient
All other systems: Reviewed and negative
Physical Exam
-
General: Comfortable
HEENT: Normocephalic
Respiratory: Clear to Auscultation
GI: Soft, Nontender and Nondistended
Musculoskeletal: No Clubbing, No Cyanosis and No Edema
Neuro: Awake, Alert, Oriented and AO x 3
Psych: Calm and Apparent Dementia
[2025-09-26 11:03] VITALS: BP 130/69; PULSE 92; O2SAT 95
[2025-09-26 11:05] LABS: Glycohemoglobin (HgbA1c) 7.6 % (4.0-5.9)
[2025-09-26 11:11] LABS: Glucose - Point of Care 184 mg/dl (70-99)
[2025-09-26 11:17] VITALS: BP 130/69; PULSE 92; O2SAT 95
[2025-09-26 11:57] LABS: TSH 2.39 uIU/ml (0.47-4.68)
[2025-09-26] MEDS: VISBIOME 1 CAP PO (12:36)
--- NOTE | 2025-09-26 13:37 | CM ---
Pt admitted via ED after a fall at [facility]. Pt recently had flu/diarrhea and UTI; hx of dementia. Melba is oriented to self and being in the hospital. STATIONARY ENGINEER Melba was reportedly ambulating with a walker independently. Pt seen by PT and OT
today with recommendation for SNF admission, as she required min/mod assist of 2 for transfers.
CM spoke briefly with pt's daughter, Stormy Mina, regarding SNF recommendation; Stormy was flustered and at work, so she asked me to call her sister. Call placed to [facility] and left a voicemail requesting a return call to discuss discharge
planning.
Plan: Await input from pt's daughters regarding SNF options which they could not recall at the time of my call. SNF referrals pending family input.
[2025-09-26 15:45] VITALS: BP 169/87
[2025-09-26 16:41] LABS: Glucose - Point of Care 119 mg/dl (70-99)
[2025-09-26] MEDS: REMOVE LIDOCAINE PATCH 2 PATCH REMOVE (20:35)
[2025-09-26 21:12] LABS: Glucose - Point of Care 128 mg/dl (70-99)
[2025-09-26] MEDS: ZOLOFT 100 MG PO (21:14)
[2025-09-26] MEDS: MELATONIN 5 MG PO (21:14)
[2025-09-26] MEDS: RESTORIL 7.5 MG PO (21:17)
[2025-09-26 23:00] VITALS: BP 140/74
[2025-09-27] MEDS: NSS 1000 IV (00:07)
[2025-09-27] MEDS: HEPARIN 5000 UNITS SC ×4 (00:08→23:20)
[2025-09-27] MEDS: SYNTHROID 112 MCG PO (05:06)
[2025-09-27 07:30] VITALS: BP 149/78
[2025-09-27 07:58] LABS: Hematocrit 31.9 % (37.0-47.0); Hemoglobin 10.6 g/dL (12.0-16.0); Mean Corp Hgb Conc. 33.2 g/dL (33.0-37.0); Mean Corpuscular Volume 89.1 fL (81.0-99.0); Platelet Count 254 10^3/uL (130-400); Red Cell Dist. Width 13.4 % (11.5-14.5)
[2025-09-27 08:08] LABS: Glucose - Point of Care 125 mg/dl (70-99)
[2025-09-27 08:23] LABS: Blood Urea Nitrogen 35 mg/dl (7-17); Calcium 8.9 mg/dl (8.4-10.2); Carbon Dioxide 15 mmol/L (22-30); Chloride 109 mmol/L (98-107); Estimated Creatinine Clearance 36 ml/min; Glucose 128 mg/dl (70-99); Potassium 3.6 mmol/L (3.5-5.1); Sodium 139 mmol/L (135-145); eGFR 39.48
[2025-09-27] MEDS: NOVOLOG FLEXPEN-LOW RESISTANCE SC ×2 (08:26→16:37)
[2025-09-27] MEDS: ASPIR LOW (ENTERIC COATED) 81 MG PO (08:41)
[2025-09-27] MEDS: PROTONIX 40 MG PO (08:41)
[2025-09-27] MEDS: CLARITIN 10 MG PO (08:41)
[2025-09-27] MEDS: ARICEPT 10 MG PO (08:41)
[2025-09-27] MEDS: NORVASC 5 MG PO (08:41)
[2025-09-27] MEDS: OSCAL 500 + D 500 MG PO (08:41)
[2025-09-27] MEDS: VISBIOME 1 CAP PO (08:41)
[2025-09-27] MEDS: CRESTOR 10 MG PO (08:41)
[2025-09-27] MEDS: REQUIP 0.5 MG PO (08:41)
[2025-09-27] MEDS: STERILE WATER FOR INJECTION 10 ML IV (08:42)
[2025-09-27] MEDS: ROCEPHIN 1000 MG IV (08:42)
[2025-09-27] MEDS: LIDOCAINE 4% PATCH 1 PATCH TOPICAL ×2 (08:42→08:43)
[2025-09-27] MEDS: DESENEX/MITRAZOL/ZEASORB 1 APPLIC TOPICAL ×2 (08:43→21:17)
--- NOTE | 2025-09-27 10:07 | W.PN.HOSP.TC ---
Today's Communication/Plan
-
stop IVF as Cr close to baseline
BMP in AM
cont Rocephin
Assessment / Plan
Assessment / Plan
75yo F with PMHX of RCC s/p L nephrectomy, DM, HTN, GERD, hypothyroidism, anxiety/depression, cognitive impairment, Hx of overactive bladder, IBS came after fall w/o LOC since she hit her head, also found SOLO with UTI. HAd recent diarrhea and some
respiratory symptoms that currently resolved.
A/P:
#SOLO on CKD unknown stage
#Hx of RCC s/p L nephrectomy
as per daughter Cr in March 2025 1.3
most likely 2/2 dehydration with recent illness
US renal: without hydronephrosis or nephrolithiasis
Hydrate and follow bmp
Bill Adjuster: Michele
#UTI
Ceftriaxone pending Ucx
#DM type 2 not on insulin
Accuchecks, insulin SS, DM diet
#Ambulatory dysfunction
PT/OT recommending rehab
#Essential HTN
#Overactive bladder
#GERD
#Hypothyroidism
#IBS
#HLD
cont home meds
DVT ppx hep
Full code
I have spent at least 51min reviewing chart, test results, and providing direct patient care
Anticipated Discharge: 24 - 48 hours
Subjective/Interval History
-
Date of Service: September 27, 2025
Objective Data
-
Labs:
Laboratory Results
09/27/25
07:18
WBC 9.0
Hgb 10.6 L
Hct 31.9 L
Plt Count 254
Sodium 139
Potassium 3.6
Chloride 109 H
Carbon Dioxide 15 L
BUN 35 H
Creatinine 1.4 H
Glucose 128 H
Calcium 8.9
Vital Signs:
Vital Signs
Temp Pulse Resp BP Pulse Ox
99.9 F 89 18 149/78 93
09/27/25 07:30 09/27/25 07:30 09/27/25 07:30 09/27/25 07:30 09/27/25 07:30
I&O
09/26/25 09/27/25 09/28/25
06:59 06:59 06:59
Intake Total 720 / 720
Balance 720 / 720
Review of Systems
-
History Source: Patient
All other systems: Reviewed and negative
Physical Exam
-
General: Well Developed, Well Nourished and No Apparent Distress
Neuro: Awake, Alert, Oriented and AO x 3
Psych: Calm
[2025-09-27 11:52] LABS: Glucose - Point of Care 150 mg/dl (70-99)
[2025-09-27] MEDS: NOVOLOG FLEXPEN-LOW RESISTANCE 1 UNITS SC (12:15)
[2025-09-27 16:00] VITALS: BP 140/77
--- NOTE | 2025-09-27 16:14 | PTCARENOTE ---
Pt is alert and oriented x2, confused to place and time. Denies any pain. Tolerating diet well. Pt is an assist x2 OOB with walker. Pt incontinent at times, incontinence care provided as needed. Pt turns and repositions self in bed. Stool studies
sent per order. VSS. Pt with no complaints at this time. Bed alarm on for safety. Call lan is within reach.
[2025-09-27 16:36] LABS: Glucose - Point of Care 128 mg/dl (70-99)
[2025-09-27] MEDS: REMOVE LIDOCAINE PATCH 2 PATCH REMOVE (21:18)
[2025-09-27] MEDS: MELATONIN 5 MG PO (21:20)
[2025-09-27] MEDS: ZOLOFT 100 MG PO (21:20)
[2025-09-27] MEDS: RESTORIL 7.5 MG PO (21:20)
[2025-09-27 21:47] LABS: Glucose - Point of Care 132 mg/dl (70-99)
[2025-09-27 23:00] VITALS: BP 159/95
[2025-09-28] MEDS: SYNTHROID 112 MCG PO (05:36)
[2025-09-28 07:22] LABS: Hematocrit 33.5 % (37.0-47.0); Hemoglobin 11.2 g/dL (12.0-16.0); Mean Corp Hgb Conc. 33.4 g/dL (33.0-37.0); Mean Corpuscular Volume 90.1 fL (81.0-99.0); Platelet Count 260 10^3/uL (130-400); Red Cell Dist. Width 13.2 % (11.5-14.5)
[2025-09-28 07:30] VITALS: BP 148/84
[2025-09-28 07:49] LABS: Blood Urea Nitrogen 32 mg/dl (7-17); Calcium 9.1 mg/dl (8.4-10.2); Carbon Dioxide 16 mmol/L (22-30); Chloride 110 mmol/L (98-107); Estimated Creatinine Clearance 36 ml/min; Glucose 113 mg/dl (70-99); Potassium 3.6 mmol/L (3.5-5.1); Sodium 140 mmol/L (135-145); eGFR 39.48
[2025-09-28 08:24] LABS: Glucose - Point of Care 121 mg/dl (70-99)
[2025-09-28] MEDS: LIDOCAINE 4% PATCH 1 PATCH TOPICAL ×3 (09:17→10:38)
[2025-09-28] MEDS: PROTONIX 40 MG PO (09:18)
[2025-09-28] MEDS: STERILE WATER FOR INJECTION 10 ML IV (09:18)
[2025-09-28] MEDS: ROCEPHIN 1000 MG IV (09:18)
[2025-09-28] MEDS: CRESTOR 10 MG PO (09:18)
[2025-09-28] MEDS: OSCAL 500 + D 500 MG PO (09:19)
[2025-09-28] MEDS: ARICEPT 10 MG PO (09:19)
[2025-09-28] MEDS: NORVASC 5 MG PO (09:19)
[2025-09-28] MEDS: ASPIR LOW (ENTERIC COATED) 81 MG PO (09:19)
[2025-09-28] MEDS: CLARITIN 10 MG PO (09:19)
[2025-09-28] MEDS: VISBIOME 1 CAP PO (09:20)
[2025-09-28] MEDS: HEPARIN 5000 UNITS SC ×2 (09:20→15:41)
[2025-09-28] MEDS: DESENEX/MITRAZOL/ZEASORB 1 APPLIC TOPICAL ×2 (09:20→21:19)
[2025-09-28] MEDS: REQUIP 0.5 MG PO (09:20)
[2025-09-28] MEDS: NOVOLOG FLEXPEN-LOW RESISTANCE SC ×3 (09:35→16:56)
--- NOTE | 2025-09-28 11:09 | W.PN.HOSP.TC ---
Today's Communication/Plan
-
medicaly stable for STR - CM to place
Assessment / Plan
Assessment / Plan
75yo F with PMHX of RCC s/p L nephrectomy, DM, HTN, GERD, hypothyroidism, anxiety/depression, cognitive impairment, Hx of overactive bladder, IBS came after fall w/o LOC since she hit her head, also found SOLO with UTI. HAd recent diarrhea and some
respiratory symptoms that currently resolved. SOLO resolved, Cr reamined stable on oral intake, medically stable for d/c to STR - CM informed
A/P:
#SOLO on CKD unknown stage
#Hx of RCC s/p L nephrectomy
as per daughter Cr in March 2025 1.3
most likely 2/2 dehydration with recent illness
US renal: without hydronephrosis or nephrolithiasis
Hydrate and follow bmp
Esol Teacher: Michele
#UTI
Ceftriaxone3 days completd
Ucx neg - reasonable to complete with cefuroxime 7 total days as patient with solitary kidney.
#DM type 2 not on insulin
Accuchecks, insulin SS, DM diet
#Ambulatory dysfunction
PT/OT recommending rehab
#Essential HTN
#Overactive bladder
#GERD
#Hypothyroidism
#IBS
#HLD
cont home meds
DVT ppx hep
Full code
I have spent at least 51min reviewing chart, test results, and providing direct patient care
Anticipated Discharge: Within 24 hours
Subjective/Interval History
-
Date of Service: September 28, 2025
Objective Data
-
Labs:
Laboratory Results
09/28/25
06:43
WBC 10.5
Hgb 11.2 L
Hct 33.5 L
Plt Count 260
Sodium 140
Potassium 3.6
Chloride 110 H
Carbon Dioxide 16 L
BUN 32 H
Creatinine 1.4 H
Glucose 113 H
Calcium 9.1
Vital Signs:
Vital Signs
Temp Pulse Resp BP Pulse Ox
98.2 F 86 16 148/84 94
09/28/25 07:30 09/28/25 09:19 09/28/25 07:30 09/28/25 09:19 09/28/25 07:30
I&O
09/27/25 09/28/25 09/29/25
06:59 06:59 06:59
Intake Total 720 / 720 840 / 840
Balance 720 / 720 840 / 840
Review of Systems
-
History Source: Patient
All other systems: Reviewed and negative
Physical Exam
-
General: No Apparent Distress
HEENT: Normocephalic
Respiratory: Clear to Auscultation
Cardiac: Regular Rhythm
GI: Soft, Nontender and Nondistended
Musculoskeletal: No Clubbing, No Cyanosis and No Edema
Neuro: Awake, Alert, Oriented and AO x 3
Psych: Calm
[2025-09-28 12:29] LABS: Glucose - Point of Care 148 mg/dl (70-99)
[2025-09-28 15:55] VITALS: BP 128/72
[2025-09-28 16:41] LABS: Glucose - Point of Care 123 mg/dl (70-99)
[2025-09-28] MEDS: MELATONIN 5 MG PO (21:14)
[2025-09-28] MEDS: CEFTIN 500 MG PO (21:14)
[2025-09-28] MEDS: ZOLOFT 100 MG PO (21:15)
[2025-09-28] MEDS: REMOVE LIDOCAINE PATCH 3 PATCH REMOVE (21:15)
[2025-09-28] MEDS: RESTORIL 7.5 MG PO (21:15)
[2025-09-28 21:25] LABS: Glucose - Point of Care 146 mg/dl (70-99)
[2025-09-28 23:00] VITALS: BP 154/85
[2025-09-29] MEDS: HEPARIN 5000 UNITS SC ×3 (00:18→16:15)
[2025-09-29] MEDS: SYNTHROID 112 MCG PO (05:54)
[2025-09-29 07:00] VITALS: BP 131/82
[2025-09-29 07:00] LABS: Blood Urea Nitrogen 30 mg/dl (7-17); Calcium 9.2 mg/dl (8.4-10.2); Carbon Dioxide 20 mmol/L (22-30); Chloride 109 mmol/L (98-107); Estimated Creatinine Clearance 36 ml/min; Glucose 127 mg/dl (70-99); Potassium 3.7 mmol/L (3.5-5.1); Sodium 141 mmol/L (135-145); eGFR 39.48
[2025-09-29 08:16] LABS: Glucose - Point of Care 130 mg/dl (70-99)
[2025-09-29] MEDS: LIDOCAINE 4% PATCH 1 PATCH TOPICAL ×3 (08:59)
[2025-09-29] MEDS: ASPIR LOW (ENTERIC COATED) 81 MG PO (09:00)
[2025-09-29] MEDS: NORVASC 5 MG PO (09:00)
[2025-09-29] MEDS: CLARITIN 10 MG PO (09:00)
[2025-09-29] MEDS: ARICEPT 10 MG PO (09:00)
[2025-09-29] MEDS: PROTONIX 40 MG PO (09:00)
[2025-09-29] MEDS: CRESTOR 10 MG PO (09:00)
[2025-09-29] MEDS: OSCAL 500 + D 500 MG PO (09:00)
[2025-09-29] MEDS: VISBIOME 1 CAP PO (09:00)
[2025-09-29] MEDS: CEFTIN 500 MG PO ×2 (09:02→20:31)
[2025-09-29] MEDS: REQUIP 0.5 MG PO (09:02)
[2025-09-29] MEDS: NOVOLOG FLEXPEN-LOW RESISTANCE SC ×3 (09:03→18:00)
[2025-09-29] MEDS: DESENEX/MITRAZOL/ZEASORB 1 APPLIC TOPICAL ×2 (09:03→20:34)
--- NOTE | 2025-09-29 09:31 | CM ---
Addendum entered by Yoana Russell 09/29/25 14:19:
ALSO FAXED CLINICALS TO SALOMON Maynard AT [phone]
Addendum entered by Yoana Russell 09/29/25 11:13:
PT/OT notes were uploaded in [employer], await determination for SNF
Original Note:
spoke with magan Burrows regarding SNF referrals
she would like [facility]
spoke with Natalie teresa - accepted referral
CM started auth process via [employer] ([facility], [place])- Requested PT/OT to eval today (last note 09/26)
PENDED REFERENCE #: [id number]
clinicals uploaded to [employer] -await PT/OT evals
tt hospitalist
[facility] NPI #: [id number]
Dr. Nathalie Rebollar NPI #: [id number]
PLAN: [facility] SNF, pending auth approval
REPORT #: [phone] ext [phone]
Fax #: [phone]
[2025-09-29 11:39] LABS: Glucose - Point of Care 142 mg/dl (70-99)
--- NOTE | 2025-09-29 13:25 | W.PN.HOSP.TC ---
Today's Communication/Plan
-
Medically stable for dc pending SNF bed/auth. CM aware.
Assessment / Plan
Assessment / Plan
Assessment:
SOLO on CKD unknown stage
Hx of RCC s/p L nephrectomy
- as per daughter Cr in March 2025 1.3
- most likely 2/2 dehydration with recent illness
- US renal: without hydronephrosis or nephrolithiasis
- Hydrate and follow bmp
- OP Bladder Tier is Dr. Bautista
Suspected UTI
- continue Cefuroxime through 10/02
DM type 2 not on insulin
- Accuchecks, insulin SS, DM diet
- A1c: 7.6%
Ambulatory dysfunction
- PT/OT recommending rehab, placement pending
Essential HTN - continue amlodipine/EDIL
Overactive bladder
GERD
Hypothyroidism
IBS
HLD - statin
DVT ppx: SC heparin
Code: Full
Dispo: Medically stable for dc pending SNF bed/auth. CM aware.
Anticipated Discharge: Within 24 hours
Subjective/Interval History
-
Date of Service: September 29, 2025
resting comfortably, no complaints at present
Objective Data
-
Labs:
Laboratory Results
09/29/25
06:02
Sodium 141
Potassium 3.7
Chloride 109 H
Carbon Dioxide 20 L
BUN 30 H
Creatinine 1.4 H
Glucose 127 H
Calcium 9.2
Vital Signs:
Vital Signs
Temp Pulse Resp BP Pulse Ox
98.5 F 76 16 131/82 97
09/29/25 07:00 09/29/25 09:00 09/29/25 07:00 09/29/25 09:00 09/29/25 07:00
I&O
1209/29/25 09/30/25
06:59 06:59 06:59
Intake Total 840 / 840 720 / 720
Balance 840 / 840 720 / 720
Physical Exam
-
General: No Apparent Distress
HEENT: Normocephalic and Atraumatic
Respiratory: Negative Wheezes
Cardiac: Regular Rhythm and S1/S2
GI: Soft and Nontender
Genito-urinary: No Costovertebral Tender
Neuro: AO x 3
Psych: Calm
Data Reviewed
-
Total Time Spent with Patient (in minutes): 42
Labs: Labs Reviewed by me
[2025-09-29 15:00] VITALS: BP 132/72
[2025-09-29 16:58] LABS: Glucose - Point of Care 103 mg/dl (70-99)
[2025-09-29] MEDS: REMOVE LIDOCAINE PATCH 3 PATCH REMOVE (20:32)
[2025-09-29] MEDS: RESTORIL 7.5 MG PO (21:14)
[2025-09-29] MEDS: ZOLOFT 100 MG PO (21:14)
[2025-09-29] MEDS: MELATONIN 5 MG PO (21:14)
[2025-09-29 21:25] LABS: Glucose - Point of Care 150 mg/dl (70-99)
[2025-09-29 23:00] VITALS: BP 145/79
[2025-09-30] MEDS: HEPARIN 5000 UNITS SC ×4 (02:19→23:49)
[2025-09-30] MEDS: SYNTHROID 112 MCG PO (05:53)
[2025-09-30 06:21] LABS: Hematocrit 32.1 % (37.0-47.0); Hemoglobin 10.8 g/dL (12.0-16.0); Mean Corp Hgb Conc. 33.6 g/dL (33.0-37.0); Mean Corpuscular Volume 89.4 fL (81.0-99.0); Platelet Count 267 10^3/uL (130-400); Red Cell Dist. Width 13.1 % (11.5-14.5)
[2025-09-30 06:44] LABS: Blood Urea Nitrogen 28 mg/dl (7-17); Calcium 9.1 mg/dl (8.4-10.2); Carbon Dioxide 21 mmol/L (22-30); Chloride 107 mmol/L (98-107); Estimated Creatinine Clearance 39 ml/min; Glucose 129 mg/dl (70-99); Potassium 3.7 mmol/L (3.5-5.1); Sodium 139 mmol/L (135-145); eGFR 43.15
[2025-09-30 07:25] VITALS: BP 115/71
[2025-09-30 07:37] LABS: Glucose - Point of Care 138 mg/dl (70-99)
[2025-09-30] MEDS: NOVOLOG FLEXPEN-LOW RESISTANCE SC ×2 (08:22→16:35)
[2025-09-30] MEDS: NORVASC 5 MG PO (08:24)
[2025-09-30] MEDS: ARICEPT 10 MG PO (08:24)
[2025-09-30] MEDS: ASPIR LOW (ENTERIC COATED) 81 MG PO (08:24)
[2025-09-30] MEDS: VISBIOME 1 CAP PO (08:24)
[2025-09-30] MEDS: OSCAL 500 + D 500 MG PO (08:24)
[2025-09-30] MEDS: CLARITIN 10 MG PO (08:25)
[2025-09-30] MEDS: PROTONIX 40 MG PO (08:25)
[2025-09-30] MEDS: CRESTOR 10 MG PO (08:25)
[2025-09-30] MEDS: LIDOCAINE 4% PATCH 1 PATCH TOPICAL ×3 (08:25→08:26)
[2025-09-30] MEDS: REQUIP 0.5 MG PO (08:25)
[2025-09-30] MEDS: CEFTIN 500 MG PO ×2 (08:25→22:48)
[2025-09-30] MEDS: DESENEX/MITRAZOL/ZEASORB 1 APPLIC TOPICAL ×2 (08:39→22:49)
--- NOTE | 2025-09-30 10:21 | W.PN.HOSP.TC ---
Today's Communication/Plan
-
dc today if auth/bed secured
Assessment / Plan
Assessment / Plan
Assessment:
SOLO on CKD unknown stage
Hx of RCC s/p L nephrectomy
- as per daughter Cr in March 2025 1.3
- most likely 2/2 dehydration with recent illness
- US renal: without hydronephrosis or nephrolithiasis
- Hydrate and follow bmp
- OP Account Leader is Dr. Bautista
Suspected UTI
- continue Cefuroxime through 10/02
DM type 2 not on insulin
- Accu-checks, insulin SS, DM diet
- A1c: 7.6%
Ambulatory dysfunction
- PT/OT recommending rehab, placement pending
Essential HTN - continue amlodipine/EDIL
Overactive bladder
GERD
Hypothyroidism
IBS
HLD - statin
DVT ppx: SC heparin
Code: Full
Dispo: Medically stable for dc pending SNF bed/auth. CM aware.
Anticipated Discharge: Today
Subjective/Interval History
-
Date of Service: September 30, 2025
resting comfortably, no complaints
Objective Data
-
Labs:
Laboratory Results
09/30/25
05:43
WBC 7.9
Hgb 10.8 L
Hct 32.1 L
Plt Count 267
Sodium 139
Potassium 3.7
Chloride 107
Carbon Dioxide 21 L
BUN 28 H
Creatinine 1.3 H
Glucose 129 H
Calcium 9.1
Vital Signs:
Vital Signs
Temp Pulse Resp BP Pulse Ox
97.5 F 74 16 115/71 96
09/30/25 07:25 09/30/25 07:25 09/30/25 07:25 09/30/25 07:25 09/30/25 07:25
I&O
09/29/25 09/30/25 10/01/25
06:59 06:59 06:59
Intake Total 720 / 720 360 / 360
Balance 720 / 720 360 / 360
Physical Exam
-
General: No Apparent Distress
HEENT: Normocephalic and Atraumatic
Respiratory: Negative Wheezes
Cardiac: Regular Rhythm and S1/S2
GI: Soft and Nontender
Genito-urinary: No Costovertebral Tender
Neuro: AO x 3
Psych: Calm
Data Reviewed
-
Total Time Spent with Patient (in minutes): 42
Labs: Labs Reviewed by me
[2025-09-30 11:55] LABS: Glucose - Point of Care 207 mg/dl (70-99)
--- NOTE | 2025-09-30 12:10 | CM ---
Addendum entered by Tawana Lao 09/30/25 16:08:
H&P sent again via availity. Authorization is still pending.
Plan is for discharge to [facility] SNF pending authorization.
Addendum entered by Jennie Downing 09/30/25 13:27:
Natalie at [facility] [phone] called for us to contact directly to provide additional information
H and P to phone number [phone] ext [phone]
Notified CM via TT
Original Note:
CM following for discharge to [facility]. Authorization is pending.
[2025-09-30] MEDS: NOVOLOG FLEXPEN-LOW RESISTANCE 2 UNITS SC (13:21)
[2025-09-30 15:23] VITALS: BP 122/70
[2025-09-30 16:30] LABS: Glucose - Point of Care 125 mg/dl (70-99)
[2025-09-30 21:26] LABS: Glucose - Point of Care 140 mg/dl (70-99)
[2025-09-30] MEDS: MELATONIN 5 MG PO (22:48)
[2025-09-30] MEDS: RESTORIL 7.5 MG PO (22:48)
[2025-09-30] MEDS: ZOLOFT 100 MG PO (22:48)
[2025-09-30] MEDS: REMOVE LIDOCAINE PATCH 3 PATCH REMOVE (22:49)
[2025-09-30 23:00] VITALS: BP 145/79
[2025-10-01] MEDS: SYNTHROID 112 MCG PO (05:35)
[2025-10-01 07:05] VITALS: BP 147/82
[2025-10-01 08:27] LABS: Glucose - Point of Care 130 mg/dl (70-99)
[2025-10-01] MEDS: NOVOLOG FLEXPEN-LOW RESISTANCE SC ×2 (08:31→18:08)
[2025-10-01] MEDS: LIDOCAINE 4% PATCH 1 PATCH TOPICAL ×3 (08:31→08:32)
[2025-10-01] MEDS: REQUIP 0.5 MG PO (08:32)
[2025-10-01] MEDS: CRESTOR 10 MG PO (08:32)
[2025-10-01] MEDS: PROTONIX 40 MG PO (08:32)
[2025-10-01] MEDS: CLARITIN 10 MG PO (08:32)
[2025-10-01] MEDS: OSCAL 500 + D 500 MG PO (08:32)
[2025-10-01] MEDS: ARICEPT 10 MG PO (08:33)
[2025-10-01] MEDS: NORVASC 5 MG PO (08:33)
[2025-10-01] MEDS: ASPIR LOW (ENTERIC COATED) 81 MG PO (08:33)
[2025-10-01] MEDS: VISBIOME 1 CAP PO (08:33)
[2025-10-01] MEDS: CEFTIN 500 MG PO ×2 (08:33→20:38)
[2025-10-01] MEDS: HEPARIN 5000 UNITS SC ×3 (08:33→23:54)
[2025-10-01] MEDS: DESENEX/MITRAZOL/ZEASORB 1 APPLIC TOPICAL ×2 (08:34→20:43)
--- NOTE | 2025-10-01 10:18 | W.PN.HOSP.TC ---
Today's Communication/Plan
-
Medically stable for dc pending SNF bed/auth. CM aware.
Assessment / Plan
Assessment / Plan
Assessment:
SOLO on CKD unknown stage
Hx of RCC s/p L nephrectomy
- as per daughter Cr in March 2025 1.3
- most likely 2/2 dehydration with recent illness
- US renal: without hydronephrosis or nephrolithiasis
- Hydrate and follow bmp
- OP Home Care Physical Therapist is Dr. Bautista
Suspected UTI
- continue Cefuroxime through 10/02
DM type 2 not on insulin
- Accu-checks, insulin SS, DM diet
- A1c: 7.6%
Ambulatory dysfunction
- PT/OT recommending rehab, placement pending
Essential HTN - continue amlodipine/EDIL
Overactive bladder
GERD
Hypothyroidism
IBS
HLD - statin
DVT ppx: SC heparin
Code: Full
Dispo: Medically stable for dc pending SNF bed/auth. CM aware.
Anticipated Discharge: Within 24 hours
Subjective/Interval History
-
Date of Service: October 01, 2025
resting comfortably, no complaints at present
Objective Data
-
Vital Signs:
Vital Signs
Temp Pulse Resp BP Pulse Ox
98.6 F 73 19 147/82 95
10/01/25 07:05 10/01/25 07:05 10/01/25 07:05 10/01/25 07:05 10/01/25 07:05
I&O
09/30/25 10/01/25 10/02/25
06:59 06:59 06:59
Intake Total 360 / 360 960 / 960
Balance 360 / 360 960 / 960
Physical Exam
-
General: No Apparent Distress
HEENT: Normocephalic and Atraumatic
Respiratory: Negative Wheezes
Cardiac: Regular Rhythm and S1/S2
GI: Soft
Genito-urinary: No Costovertebral Tender
Neuro: AO x 3
Psych: Calm
Data Reviewed
-
Total Time Spent with Patient (in minutes): 42
Labs: Labs Reviewed by me
--- NOTE | 2025-10-01 11:30 | WOUNDNOTE ---
WO RN note: Patient seen during prevention rounds. Patient can turn self in bed. She is incontinent of urine. Sheree care given. Miconazole powder applied to mild red sheree skin. Patient has an air chair cushion. Instructed patient frequent turning
and repositioning. Heels off bed with pillow. Appetite good for breakfast. MARGUERITE Riggs in to see patient.
--- NOTE | 2025-10-01 11:54 | CM ---
CM continues to follow for discharge to [facility]. Authorization is still pending.
Plan: Discharge to [facility] when medically cleared and authorization has been approved.
[facility] Report: [phone]
[facility]
[2025-10-01 13:18] LABS: Glucose - Point of Care 204 mg/dl (70-99)
[2025-10-01] MEDS: NOVOLOG FLEXPEN-LOW RESISTANCE 2 UNITS SC (13:18)
[2025-10-01 15:00] VITALS: BP 127/69
--- NOTE | 2025-10-01 15:42 | CM ---
Authorization request for transfer to [facility] was cancelled. CM sent the request again for consideration.
Awaiting determination for SNF transfer.
[2025-10-01 18:07] LABS: Glucose - Point of Care 126 mg/dl (70-99)
[2025-10-01] MEDS: REMOVE LIDOCAINE PATCH 3 PATCH REMOVE (20:38)
[2025-10-01 21:15] LABS: Glucose - Point of Care 139 mg/dl (70-99)
[2025-10-01] MEDS: MELATONIN 5 MG PO (22:17)
[2025-10-01] MEDS: ZOLOFT 100 MG PO (22:17)
[2025-10-01] MEDS: RESTORIL 7.5 MG PO (22:19)
[2025-10-01 23:00] VITALS: BP 131/69
[2025-10-02] MEDS: SYNTHROID 112 MCG PO (06:11)
[2025-10-02 07:00] VITALS: BP 143/80
[2025-10-02 07:34] LABS: Glucose - Point of Care 138 mg/dl (70-99)
[2025-10-02] MEDS: NOVOLOG FLEXPEN-LOW RESISTANCE SC (07:36)
[2025-10-02] MEDS: CLARITIN 10 MG PO (07:45)
[2025-10-02] MEDS: VISBIOME 1 CAP PO (07:45)
[2025-10-02] MEDS: CRESTOR 10 MG PO (07:45)
[2025-10-02] MEDS: ARICEPT 10 MG PO (07:45)
[2025-10-02] MEDS: OSCAL 500 + D 500 MG PO (07:45)
[2025-10-02] MEDS: REQUIP 0.5 MG PO (07:45)
[2025-10-02] MEDS: PROTONIX 40 MG PO (07:45)
[2025-10-02] MEDS: NORVASC 5 MG PO (07:45)
[2025-10-02] MEDS: CEFTIN 500 MG PO (07:45)
[2025-10-02] MEDS: ASPIR LOW (ENTERIC COATED) 81 MG PO (07:46)
[2025-10-02] MEDS: HEPARIN 5000 UNITS SC ×2 (07:46→16:32)
[2025-10-02] MEDS: LIDOCAINE 4% PATCH 1 PATCH TOPICAL ×3 (07:47→07:48)
[2025-10-02] MEDS: DESENEX/MITRAZOL/ZEASORB 1 APPLIC TOPICAL (07:48)
--- NOTE | 2025-10-02 10:15 | CM ---
Initial authorization for skilled rehab at [facility] re-entered in [employer], clinicals uploaded and also faxed to [phone].
Pended reference # [id number].
[2025-10-02 11:45] LABS: Glucose - Point of Care 178 mg/dl (70-99)
--- NOTE | 2025-10-02 11:54 | CM ---
Addendum entered by Yoana Russell 10/02/25 14:54:
AUTH APPROVED FOR [facility]
AUTH APPROVAL #: [id number]
10/02/25 - NRD 10/10/25
fax updates to Ramila Maynard at [phone]
LM with Natalie teresa auth information
spoke with yady Burrows - IMM explained, in chart
PLAN: [facility]
REPORT #: [phone] ext [phone]
Fax #: [phone]
transportation forms on chart
Original Note:
spoke with Natalie teresa from [facility] & updated
tt hospitalist
bed still available
auth re-submitted through [employer]
Pended reference # [id number]
IMM Reviewed with yady Burrows, placed in chart
PLAN: [facility], once auth approved
REPORT #: [phone] ext [phone]
Fax #: [phone]
[2025-10-02] MEDS: NOVOLOG FLEXPEN-LOW RESISTANCE 1 UNITS SC ×2 (12:11→17:29)
--- NOTE | 2025-10-02 12:44 | W.PN.HOSP.TC ---
Today's Communication/Plan
-
Medically stable for dc pending SNF bed/auth. CM aware.
Assessment / Plan
Assessment / Plan
Assessment:
SOLO on CKD unknown stage
Hx of RCC s/p L nephrectomy
- as per daughter Cr in March 2025 1.3
- most likely 2/2 dehydration with recent illness
- US renal: without hydronephrosis or nephrolithiasis
- Hydrate and follow bmp
- OP Contract Administrative Assistant is Dr. Bautista
Suspected UTI
- continue Cefuroxime through 10/02
DM type 2 not on insulin
- Accu-checks, insulin SS, DM diet
- A1c: 7.6%
Ambulatory dysfunction
- PT/OT recommending rehab, placement pending
Essential HTN - continue amlodipine/EDIL
Overactive bladder
GERD
Hypothyroidism
IBS
HLD - statin
DVT ppx: SC heparin
Code: Full
Dispo: Medically stable for dc pending SNF bed/auth. CM aware.
Anticipated Discharge: Within 24 hours
Subjective/Interval History
-
Date of Service: October 02, 2025
resting comfortably, no complaints at present
Objective Data
-
Vital Signs:
Vital Signs
Temp Pulse Resp BP Pulse Ox
98.7 F 78 19 143/80 95
10/02/25 07:00 10/02/25 07:00 10/02/25 07:00 10/02/25 07:00 10/02/25 07:00
I&O
10/01/25 10/02/25 10/03/25
06:59 06:59 06:59
Intake Total 1620 / 1620
Balance 1620 / 1620
Physical Exam
-
General: No Apparent Distress
HEENT: Normocephalic and Atraumatic
Respiratory: Negative Wheezes
Cardiac: Regular Rhythm and S1/S2
GI: Soft and Nontender
Genito-urinary: No Costovertebral Tender
Neuro: AO x 3
Psych: Calm
Data Reviewed
-
Total Time Spent with Patient (in minutes): 42
--- NOTE | 2025-10-02 14:54 | W.DCSUMMARY ---
Discharge Summary
Discharge Data
Date of Admission: 09/25/25
Date of Discharge: 10/02/25
-
Pending Results: No
Hospital Course
75 y/o F, hx of renal cell carcinoma status post left nephrectomy, hypertension, GERD, type I diabetes, hypothyroidism, anxiety/depression, mild cognitive impairment, insomnia, overactive bladder, IBS, presented to ER on 09/25 with mechanical fall
and weakness. Patient also had urinary burning. There was clinical suspicion for UTI and with patients solitary kidney, she was started on Rocephin and transitioned to Cefuroxime course which she completed. Patient also had SOLO on CKD and received
IVF with improvement to baseline Cr of 1.4. She was evaluated by PT/OT and recommended for discharge to SNF. She was discharged 10/02/25.
Discharge Plan
-
Patient Disposition: Residential/SNF
Discharge Diagnosis/Procedures: SOLO on CKD, UTI
Condition: Fair
Diet: Diabetic, Carb Controlled
Activity: As tolerated
Bathing Restrictions: None
Other Services: PT and OT
Activity Restrictions/Additional Instructions:
Pressure redistributing chair cushion (i.e. air or gel cushion)
Elevate heels off bed with pillow/s.
Referrals:
Kenton Uribe MD [Family Provider, Family Practice]
Prescriptions:
New
Lactobac/Bifidobac [Visbiome]
1 cap PO DAILY Qty: 30 0RF
Continued
lidocaine [Lidocaine Pain Relief] 4 % adhesive patch,medicated
1 patch TOPICAL DAILY
donepezil 10 mg tablet
10 mg PO DAILY
amlodipine 5 mg tablet
5 mg PO DAILY
calcium carbonate-vitamin D3 600 mg-5 mcg (200 unit) tablet
1 tab PO DAILY
aspirin 81 mg tablet,delayed release (DR/EC)
81 mg PO DAILY
temazepam 7.5 mg capsule
7.5 mg PO HS
hydrocortisone 2.5 % cream with perineal applicator
1 applic VA Q6HPRN PRN (Reason: hemorrhoids)
desloratadine 5 mg tablet
5 mg PO DAILY
esomeprazole magnesium 40 mg capsule,delayed release(DR/EC)
40 mg PO DAILY
ropinirole 0.5 mg tablet
0.5 mg PO DAILY
lidocaine 5 % adhesive patch,medicated
1 patch transdermal DAILY
betamethasone dipropionate 0.05 % cream
1 applic TOPICAL BID
lisinopril 5 mg tablet
5 mg PO BID
furosemide 20 mg tablet
20 mg PO DAILY
sertraline 50 mg tablet
100 mg PO HS
rosuvastatin 10 mg tablet
10 mg PO DAILY
melatonin 5 mg tablet
5 mg PO HS
mirabegron [Myrbetriq] 25 mg tablet extended release 24 hr
25 mg PO DAILY
nystatin 100,000 unit/gram powder
1 applic TOPICAL DAILY
polyethylene glycol 3350 [Miralax] 17 gram/dose Powder
4 g PO DAILY
levothyroxine [Synthroid] 112 mcg Tablet
112 mcg PO DAILY
Discharge Orders:
Discharge Patient (As Directed); Ordered 10/02/25
Ordered By: Venessa Ugalde
Discharge Date and Time
Print Language: SAMI
[2025-10-02 15:08] VITALS: BP 123/84
[2025-10-02 17:19] LABS: Glucose - Point of Care 164 mg/dl (70-99)
[2025-10-02 20:45] VITALS: BP 130/79
== END 2025-10-02 21:05 | DRG 683 ==
LOC: 3 WEST ACU 18:49
PROVIDERS: Emergency Medicine; Physician Assistant; Registered Nurse; ADMITTING PHYSICIAN Hospitalist; ATTENDING PHYSICIAN Internal Medicine; EMERGENCY PHYSICIAN Emergency Medicine; FAMILY PHYSICIAN Family Medicine
DX: N17.9 Acute kidney failure, unspecified (principal); E87.20 Acidosis, unspecified; N39.0 Urinary tract infection, site not specified; F03.94 Unspecified dementia, unspecified severity, with anxiety; E03.9 Hypothyroidism, unspecified; I12.9 Hypertensive chronic kidney disease with stage 1 through stage 4 chronic kidney disease, or unspecified chronic kidney disease; E11.22 Type 2 diabetes mellitus with diabetic chronic kidney disease; E78.5 Hyperlipidemia, unspecified; G47.00 Insomnia, unspecified; K21.9 Gastro-esophageal reflux disease without esophagitis; K58.0 Irritable bowel syndrome with diarrhea; N18.32 Chronic kidney disease, stage 3b; N32.81 Overactive bladder; W06.XXXA Fall from bed, initial encounter; R19.7 Diarrhea, unspecified; Z11.52 Encounter for screening for COVID-19; Z79.899 Other long term (current) drug therapy
CPT/HCPCS: 51798; 70450; 71046; 76770; 80048; 80053; 81003; 81015; 82962; 83036; 83690; 84443; 85025; 85027; 87086; 87324; 87449; 87502; 87811; 89055; 96360; 96361; 97163; 97167; 97530; 97535; 99285